=== PATIENT | female | born 1945 | race Two or more races ===

== ENCOUNTER 2017-12-01 10:30 | Inpatient (IN) | payer OTHER ==
[~2017-12-01] VITALS: Ht 160 cm; Wt 63.5 kg
[~2017-12-01 10:30] MED LIST: BRAIN MIGHT-DH1 EACH PO; CALCIO PO; CIMBALTA PO; CIPROFLOXACIN750 MG PO; CLONAZEPAM0.5 MG PO; CLONAZEPAM1 MG PO; DOCUSATE SODIU100 MG PO; GABAPENTIN800 MG PO; GLUCOSAMINE1000 MG PO; LIPITOR40 MG PO; METHYLPRED4 MG/DOSE- PO; NEURONTIN PO; PERCOCET 5/3251 TAB PO; ULTRAM50 MG PO
[2017-12-08] MEDS ORDERED: DOCUSATE SODIU100 MG PO (09:37)
[2017-12-08] MEDS ORDERED: PERCOCET 5-3251 EACH PO (09:38)
[2017-12-08] MEDS ORDERED: CLONAZEPAM1 MG PO (09:38)
== END 2017-12-09 14:39 | disposition home or self-care (01) | DRG 472 ==
LOC: SURH 10:30 → O/R 12-08 04:45 → PED 12-08 04:45 → SURH 12-08 07:00 → PED 12-08 11:02
PROVIDERS: Orthopaedic Surgery Orthopaedic Surgery of the Spine
PROC: 0RG20A0 Fusion of 2 or more Cervical Vertebral Joints with Interbody Fusion Device, Anterior Approach, Anterior Column, Open Approach (ICD-10-PCS; 2017-12-08)
PROC: 0RT30ZZ Resection of Cervical Vertebral Disc, Open Approach (ICD-10-PCS; principal; 2017-12-08 07:00)
DX: M47.12 Other spondylosis with myelopathy, cervical region (principal); M50.023 Cervical disc disorder at C6-C7 level with myelopathy; E11.9 Type 2 diabetes mellitus without complications; I10 Essential (primary) hypertension